=== PATIENT | male | born 1995 | race American Indian/Alaskan Native ===

== ENCOUNTER 2022-07-05 02:48 | Emergency (ER) | payer SELFPAY ==
[2022-07-05] MEDS ORDERED: oxyCODONE /ACETAMINOPHEN 5-325MG TAB PO ONE (04:39)
[2022-07-05] MEDS ORDERED: ONDANSETRON 4 MG ODT TAB PO ONE (04:39)
[2022-07-05] MEDS ORDERED: IBUPROFEN 600 MG TAB PO ONE (04:39)
--- NOTE | 2022-07-05 05:11 | Emergency Department Report ---
ED Lower Extremity HPI - General Chief Complaint: Extremity Injury, Lower Stated Complaint: LT ANKLE PAIN Source: patient, EMS Mode of arrival: Stretcher Limitations: Physical Limitation - History of Present Illness Initial Comments: Patient is a 26-year-old -[place] Citizen male with no past medical history presents to the ED with complaint of acute onset persistent left ankle pain after he got injured on the job about 10 days ago at work. Patient states that he went to an urgent care clinic and had an x-ray of the left ankle and was told that the injury did not show any fractures but a sprain of the left ankle. Patient states that he was discharged home on prescription of cyclobenzaprine and an ointment for pain. Patient states that these medications have not helped control his left ankle pain. Patient states that the pain is especially worse with ambulation or any weightbearing on the left foot or left ankle and now states that the pain radiates proximally to the left hip and left knee. Patient denies fall, traumatic injury, dizziness, syncope, nausea and vomiting, chest pain or shortness of breath, low back pain, numbness and tingling or weakness of lower extremities bilaterally. MD Complaint: ankle injury (LEFT ANKLE PAIN) -: days(s) (10) Injury: Ankle: Left (PAIN) Type of Injury: eversion Place: work Severity: severe Severity scale (0 -10): 8 Improves With: nothing Worsens With: weight bearing, movement, palpation Context: walking Associated Symptoms: snap/pop sensation, swelling, able to partially bear weight. denies: numbness, tingling, unable to bear weight, ambulatory - Related Data Previous Rx's Medication Instructions Recorded Last Taken Type Ibuprofen [Motrin] 800 mg PO Q8HR PRN #30 tablet 07/05/22 Unknown Rx traMADoL [Ultram] 50 mg PO Q6HR PRN #12 tablet 07/05/22 Unknown Rx Allergies Allergy/AdvReac Type Severity Reaction Status Date / Time No Known Allergies Allergy Unverified 07/05/22 02:57 ED Review of Systems ROS: Stated complaint: LT ANKLE PAIN Other details as noted in HPI Constitutional: denies: chills, fever Eyes: denies: eye pain, eye discharge, vision change ENT: denies: ear pain, throat pain Respiratory: denies: cough, shortness of breath, wheezing Cardiovascular: denies: chest pain, palpitations Endocrine: no symptoms reported Gastrointestinal: denies: abdominal pain, nausea, diarrhea Genitourinary: denies: urgency, dysuria Musculoskeletal: joint swelling (Left ankle pain and swelling), arthralgia (Left ankle pain and swelling). denies: back pain Skin: denies: rash, lesions Neurological: denies: headache, weakness, paresthesias Psychiatric: denies: anxiety, depression Hematological/Lymphatic: denies: easy bleeding, easy bruising ED Past Medical Hx - Past Medical History Previous Medical History?: No - Surgical History Past Surgical History?: No - Social History Smoking Status: Never Smoker Substance Use Type: None - Medications Home Medications: Home Medications Medication Instructions Recorded Confirmed Last Taken Type Ibuprofen [Motrin] 800 mg PO Q8HR PRN #30 tablet 07/05/22 Unknown Rx traMADoL [Ultram] 50 mg PO Q6HR PRN #12 tablet 07/05/22 Unknown Rx ED Physical Exam - General Limitations: Physical Limitation General appearance: alert, in no apparent distress - Head Head exam: Present: atraumatic, normocephalic, normal inspection - Eye Eye exam: Present: normal appearance, PERRL, EOMI Pupils: Present: normal accommodation - ENT ENT exam: Present: normal exam, normal orophraynx, mucous membranes moist, TM's normal bilaterally, normal external ear exam - Neck Neck exam: Present: normal inspection, full ROM. Absent: tenderness - Respiratory Respiratory exam: Present: normal lung sounds bilaterally. Absent: respiratory distress, wheezes, rales, rhonchi, stridor, chest wall tenderness, accessory muscle use, decreased breath sounds, prolonged expiratory - Cardiovascular Cardiovascular Exam: Present: regular rate, normal rhythm, normal heart sounds. Absent: systolic murmur, diastolic murmur, rubs, gallop - GI/Abdominal GI/Abdominal exam: Present: soft, normal bowel sounds. Absent: tenderness, guarding, rebound, hyperactive bowel sounds, hypoactive bowel sounds, organomegaly, mass - Extremities Exam Extremities exam: Present: normal inspection, tenderness (Palpable left ankle tenderness with mild swelling and limited range of motion due to pain), normal capillary refill, joint swelling (Left ankle swelling). Absent: full ROM (Limited range of motion of left ankle due to pain), calf tenderness - Back Exam Back exam: Present: normal inspection, full ROM. Absent: tenderness, CVA tenderness (R), CVA tenderness (L), muscle spasm, paraspinal tenderness, vertebral tenderness - Neurological Exam Neurological exam: Present: alert, oriented X3, CN II-XII intact, normal gait, reflexes normal - Psychiatric Psychiatric exam: Present: normal affect, normal mood - Skin Skin exam: Present: warm, dry, intact, normal color. Absent: rash ED Course Vital Signs 07/05/22 02:49 Temperature 98.6 F Pulse Rate 99 H Respiratory 18 Rate Blood Pressure 128/72 O2 Sat by Pulse 99 Oximetry ED Lower Extremity MDM - Medical Decision Making This is a 26-year-old -[place] Citizen male with no past medical history presents to the ED with complaint of acute onset persistent left ankle pain after he got injured on the job about 10 days ago at work. Patient states that he went to an urgent care clinic and had an x-ray of the left ankle and was told that the injury did not show any fractures but a sprain of the left ankle. Patient states that he was discharged home on prescription of cyclobenzaprine and an ointment for pain. Patient states that these medications have not helped control his left ankle pain. Patient states that the pain is especially worse with ambulation or any weightbearing on the left foot or left ankle and now states that the pain radiates proximally to the left hip and left knee. In the ED, patient is alert and oriented x3 and is not in any distress. Patient was treated for pain in the ED and discharged home on pain medications and advised to follow-up with his primary care physician in 7 to 10 days for reevaluation. Patient advised return to the ED immediately if symptoms get worse. - Differential Diagnosis Ankle sprain; ankle muscle strain; ankle injury; Critical care attestation.: If time is entered above; I have spent that time in minutes in the direct care of this critically ill patient, excluding procedure time. ED Disposition Clinical Impression: Severe sprain of left ankle Qualifiers: Encounter type: initial encounter Qualified Code(s): S93.402A - Sprain of unspecified ligament of left ankle, initial encounter Injury of left ankle Qualifiers: Encounter type: initial encounter Qualified Code(s): S99.912A - Unspecified injury of left ankle, initial encounter Disposition: HOME / SELF CARE / HOMELESS Is pt being admited?: No Does the pt Need Aspirin: No Condition: Stable Instructions: Ankle Sprain, [id number], Muscle Strain, [id number] Additional Instructions: Your injuries are likely musculoskeletal following an injury at work. Therefore take medication as needed for pain, drink plenty of fluids, follow-up with your primary care physician in 7 to 10 days for reevaluation. Return to the ED immediately if symptoms get worse. Prescriptions: Ibuprofen [Motrin] 800 mg PO Q8HR PRN #30 tablet PRN Reason: Pain , Severe (7-10) traMADoL [Ultram] 50 mg PO Q6HR PRN #12 tablet PRN Reason: Pain Referrals: [facility] [Provider Group] - 7-10 days Forms: Work/School Release Form(ED) Time of Disposition: 05:12 Print Language: FAROESE
[2022-07-05 06:18] VITALS: BP 132/76
== END 2022-07-05 06:18 | disposition home or self-care (01) ==
LOC: ED 02:48
DX: S93.402A Sprain of unspecified ligament of left ankle, initial encounter (principal); Z79.899 Other long term (current) drug therapy; X58.XXXA Exposure to other specified factors, initial encounter; Y93.89 Activity, other specified; Y92.89 Other specified places as the place of occurrence of the external cause; Y99.8 Other external cause status
CPT/HCPCS: 99283; J3490; Q0162